=== PATIENT | female | born 1985 | race Two or more races ===

== ENCOUNTER 2020-11-25 17:40 | Emergency (ER) | payer BC, OTHER ==
[~2020-11-25] VITALS: Ht 175.3 cm; Wt 85.3 kg
[2020-11-25 18:05] VITALS: BP 111/86
[2020-11-25] MEDS ORDERED: NEOMY/BACITR/POLYMYXIN OINT PACKET. TP ONE (18:26)
[2020-11-25] MEDS ORDERED: BACITRACIN ZINC TOPICAL OINT PACKET. TP ONE (18:30)
--- NOTE | 2020-11-25 18:43 | PHYS DOC ---
Past History Past Medical History: No Pertinent History (CHARAN MCKEON APRN) Past Surgical History: Other (CHARAN MCKOEN APRN) Alcohol Use: None (CHARAN MCKEON APRN) Adult General Chief Complaint Chief Complaint: ABRASION HPI HPI Patient is a 35-year-old female presents emergency department complaining of right wrist pain. Patient reports going through tattoo removal therapy 2 days ago. Patient states she had a wound care gel pack covering the area. Patient states she was horse playing with her when she started to fall and thus shearing her wound covered right wrist against him pulling the wound cover off. Patient states that this tore her blister in which she is now experiencing a burning type pain. Patient reports her main reason for coming to the emergency department was to make sure that she was not going to scar from this incident. Patient reports her last tetanus immunization was received on March 11, 2017. Patient reports an allergy to NSAIDs, aspirin, CT contrast dye, penicillin, and latex. Patient reports taking Vyvanse, prescription for an EpiPen for allergies, albuterol MDI, and Ativan as needed. Patient denies any other physical complaints or physical concerns. Patient denies domestic abuse in her house. (CHARAN MCKEON APRN) Review of Systems Review of Systems 14 body systems of review of systems have been reviewed. See HPI for pertinent positives and negative responses, otherwise all other systems are negative, nonpertinent or noncontributory. (CHARAN MCKEON APRN) Current Medications Current Medications Current Medications Medications (Trade) Dose Ordered Sig/Sánchez Start Time Stop Time Status Last Admin Dose Admin Bacitracin (Bacitracin Topical Pkt) 1 pkt 1X ONCE 11/25/20 18:30 11/25/20 18:31 DC Neomycin/ Polymyxin/ Bacitracin (Triple Antibiotic Ointment) 1 pkt STK-MED ONCE 11/25/20 18:26 11/25/20 18:26 DC (CHARAN MCKEON APRN) Allergies Allergies Allergies Coded Allergies Type Severity Reaction Last Updated Verified NSAIDS (Non-Steroidal Anti-Inflamma Allergy Unknown 11/25/20 Yes Penicillins Allergy Unknown 11/25/20 Yes aspirin Allergy Unknown 11/25/20 Yes latex Allergy Unknown 11/25/20 Yes (CHARAN MCKEON APRN) Physical Exam Physical Exam Constitutional: Well developed, well nourished, no acute distress, non-toxic appearance. 35-year-old female no apparent distress. HENT: Normocephalic, atraumatic, bilateral external ears normal, oropharynx moist, no oral exudates, nose normal. Eyes: EOMI, conjunctiva appear normal, no apparent discharge. Cardiovascular: No cyanosis appreciated, distal cap refill less than 2 seconds. Lungs & Thorax: Patient is in no apparent respiratory distress. Skin: Warm, dry, no erythema, no rash. See extremity note. Extremities: No tenderness, no cyanosis, no clubbing, ROM intact, no edema. Except for right wrist, patient has blistered area that is becoming disrupted from apparent shearing process, patient had wound gel care dressing covering in which she removed for examination, there is no infectious process appreciated. No bleeding appreciated. Neurologic: Alert and oriented X 3, normal motor function, normal sensory function, no focal deficits noted. Psychologic: Affect normal, judgement normal, mood normal. (CHARAN MCKEON APRN) Current Patient Data Vital Signs Vital Signs Date Time Temp Pulse Resp B/P (MAP) Pulse Ox O2 Delivery O2 Flow Rate FiO2 11/25/20 18:05 98.7 74 16 111/86 (94) 98 (CHARAN MCKEON APRN) EKG EKG [] (CHARAN MCKEON APRN) Radiology/Procedures Radiology/Procedures [] (CHARAN MCKEON APRN) Heart Score C/O Chest Pain: No Risk Factors: Risk Factors: DM, Current or recent (<one month) smoker, HTN, HLP, family history of CAD, obesity. Risk Scores: Risk Factors: DM, Current or recent (<one month) smoker, HTN, HLP, family history of CAD, obesity. (CHARAN MCKEON APRN) Course & Med Decision Making Course & Med Decision Making Pertinent Labs and Imaging studies reviewed. (See chart for details) 35-year-old female, vital signs reviewed, presents emergency department concerning breaking a blister on her right wrist while horse playing with her today. Physical examination consistent with the patient's chief complaint. Patient is currently going through a tattoo over removal process, the area was covered with a gel type wound care product. There was no obvious signs of infectious process. Discussed with patient to continue daily cleansing and treatment that is recommended by her tattoo removal therapist. 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 Patient gave verbal understanding of discharge home instructions, follow-up with ongoing wound care tattoo removal therapist, return to ER precautions and concerns, continue home wound care advice from tattoo removal therapist, patient was discharged home without incident. Wound was redressed with bacitracin and Telfa until patient is able to return home and replace dressing with her gel type wound care product. (CHARAN MCKEON APRN) Course & Med Decision Making Did not see or evaluate patient. Agree with DRAW TENDER's work-up and disposition per note. (ANNETTE SHARP MD) Dragon Disclaimer Dragon Disclaimer This electronic medical record was generated, in whole or in part, using a voice recognition dictation system. (CHARAN MCKEON APRN) Departure Departure: Impression: Primary Impression: Encounter for evaluation of wound Disposition: HOME / SELF CARE / HOMELESS Condition: GOOD Additional Instructions: Your wound was evaluated in the emergency department today, you have been taking excellent care of this wound, the blister did become disrupted, however continue your wound care as directed by your tattoo removal therapist. Please return to the emergency department for worsening signs and symptoms. Follow-up with your primary care physician for signs and symptoms of infectious process. EMERGENCY DEPARTMENT GENERAL DISCHARGE INSTRUCTIONS Thank you for coming to [facility] ([facility]) today and trusting us with you care. We trust that you had a positivie experience in our Emergency Department. If you wish to speak to the department management, you may call the director at [phone]. YOUR FOLLOW UP INSTRUCTIONS ARE FOLLOWS: 1. Do you have a private Doctor? If you do not have a private doctor, please ask for a resource list of physicians or clinics that may be able to assist you with follow up care. 2. The Emergency Physician has interpreted your x-rays. The X-Ray specialist will also review them. If there is a change in the findings, you will be notified in 48 hours when at all possible. 3. A lab test or culture has been done, your results will be reviewed and you will be notified if you need a change in treatment. ADDITIONAL INSTRUCTIONS AND INFORMATION: 1. Your care today has been supervised by a physician who is specially trained in emergency care. Many problems require more than one evaluation for a complete diagnosis and treatment. We recommend that you schedule your follow up appointment as recommended to ensure complete treatment of you illness or injury. If you are unable to obtain follow up care and continue to have a problem, or if your condition worsens, we recommend that you return to the ED. 2. We are not able to safely determine your condition over the phone nor are we able to give sound medical advice over the phone. For these safety reasons, if you call for medical advice we will ask you to come to the ED for further evaluation. 3. If you have any questions regarding these discharge instructions please call the ED at [phone]. SAFETY INFORMATION: In the interest of safety, wellness, and injury prevention; we encourage you to wear your sealbelt, if you smoke; quite smoking, and we encourage family to use a protective helmet for bicycling and other sporting events that present an increased risk for head injury. IF YOUR SYMPTOMS WORSEN OR NEW SYMPTOMS DEVELOP, OR YOU HAVE CONCERNS ABOUT YOUR CONDITION; OR IF YOUR CONDITION WORSENS WHILE YOU ARE WAITING FOR YOUR FOLLOW UP APPOINTMENT; EITHER CONTACT YOUR PRIMARY CARE DOCTOR, THE PHYSICIAN WHOSE NAME AND NUMBER YOU WERE GIVEN, OR RETURN TO THE ED IMMEDIATELY. CHARAN MCKEON APRN November 25, 2020 18:43 ANNETTE SHARP MD November 26, 2020 02:15
== END 2020-11-25 18:43 | disposition home or self-care (01) ==
LOC: ER 17:40
DX: M25.531 Pain in right wrist (principal); Z48.01 Encounter for change or removal of surgical wound dressing; Z88.0 Allergy status to penicillin; Z91.040 Latex allergy status; Z88.6 Allergy status to analgesic agent
CPT/HCPCS: 99282-25